=== PATIENT | female | born 1975 | race African-American/Black ===

== ENCOUNTER 2021-05-30 15:46 | Emergency (ER) | payer OTHER ==
[2021-05-30 15:53] VITALS: BP 145/78; PULSE 81; BMI 33.3
[2021-05-30 15:58] VITALS: TEMP 98.5
[2021-05-30] MEDS ORDERED: morphine SULFATE 4 MG/ML VIAL IVPUSH ONE (16:23)
[2021-05-30] MEDS ORDERED: ONDANSETRON 4 MG/2 ML VIAL IVPUSH ONE (16:23)
[2021-05-30] MEDS ORDERED: morphine SULFATE 4 MG/ML VIAL ONE (16:34)
[2021-05-30] MEDS ORDERED: ONDANSETRON 4 MG/2 ML VIAL ONE (16:35)
[2021-05-30 17:43] LABS: BASO % 1.4 % (0-2.0); HEMATOCRIT 38.2 % (32.4-45.2); HEMOGLOBIN 12.9 GM/dL (10.7-15.3); LYMPH % 47.2 % (8-40); MCHC 33.8 g/dl (32.0-36.0); MEAN CELL VOLUME 88.8 fl (80-96); MEAN PLT VOLUME 9.1 fl (7.5-11.1); MONO % 7.7 % (3.8-10.2); NEUT % 39.7 % (42.8-82.8); PLATELET COUNT 180 10^3/uL (134-434); RDW 14.3 % (11.6-15.6); WHITE BLOOD COUNT 4.7 K/mm3 (4.0-10.0)
[2021-05-30 17:50] LABS: INR 1.05 (0.83-1.09); PROTHROMBIN TIME (PATIENT) 12.9 SEC (9.7-13.0)
[2021-05-30 18:12] LABS: ALBUMIN 3.9 g/dl (3.4-5.0); BLOOD UREA NITROGEN 4.6 mg/dL (7-18); CALCIUM 8.5 mg/dL (8.5-10.1)
[2021-05-30 18:15] LABS: CREATININE 0.3 mg/dL (0.55-1.3)
[2021-05-30 18:17] LABS: BILIRUBIN,TOTAL 0.8 mg/dL (0.2-1); TOT PROT 7.4 g/dl (6.4-8.2)
[2021-05-30 20:35] LABS: PH,URINE 6.5 (5.0-8.0); URINE APPEARANCE Clear; URINE BILIRUBIN Negative (NEGATIVE); URINE COLOR Yellow; URINE GLUCOSE (UA) Negative (NEGATIVE); URINE KETONE 4+ (NEGATIVE); URINE LEUK ESTERASE Negative (NEGATIVE); URINE NITRITE Negative (NEGATIVE); URINE PROTEIN Negative (NEGATIVE)
[2021-05-30 21:02] LABS: EPI CELLS 12.7 /uL (0-25.1); HYALINE CASTS 0.88 /uL (0-3.1); URINE BACTERIA 138.8 /uL (0-1359); URINE RBC 45.1 /uL (0-23.9); URINE WBC 6.9 /uL (0-25.8)
== END 2021-05-30 21:44 | disposition home or self-care (01) ==
LOC: JER 15:46
PROC: 3E033GC Introduction of Other Therapeutic Substance into Peripheral Vein, Percutaneous Approach (ICD-10-PCS; principal; 2021-05-30)
DX: O20.9 Hemorrhage in early pregnancy, unspecified (principal); Z3A.08 8 weeks gestation of pregnancy
CPT/HCPCS: 36415; 76801-TC; 80053; 81003; 84702; 85025; 85610; 85730; 86850; 86900; 86901; 87086; 99284-25

== ENCOUNTER 2022-05-01 16:30 | Emergency (ER) | payer OTHER ==
[2022-05-01 17:03] VITALS: BP 154/98; PULSE 76; TEMP 97.3; BMI 30.3
[2022-05-01] MEDS ORDERED: SODIUM CHLORIDE 1,000 ML IV STA (18:21)
[2022-05-01] MEDS ORDERED: PANTOPRAZOLE SODIUM 40 MG VIAL IVPB ONE (18:22)
[2022-05-01] MEDS ORDERED: PANTOPRAZOLE SODIUM 40 MG VIAL ONE (18:30)
[2022-05-01] MEDS ORDERED: ONDANSETRON 4 MG/2 ML VIAL IVPUSH ONE (18:30)
[2022-05-01] MEDS ORDERED: ONDANSETRON 4 MG/2 ML VIAL ONE (18:30)
[2022-05-01] MEDS ORDERED: ASPIRIN 81 MG CHEWABLE TABLETS PO ONE (19:02)
[2022-05-01] MEDS ORDERED: HALOPERIDOL LACTATE 5 MG/ML IM ONE (19:50)
[2022-05-01] MEDS ORDERED: HALOPERIDOL LACTATE 5 MG/ML ONE (19:57)
[2022-05-01 20:15] LABS: BASO % 0.4 % (0-2.0); EOS % 0.6 % (0-4.5); HEMATOCRIT 40.3 % (32.4-45.2); HEMOGLOBIN 13.2 GM/dL (10.7-15.3); LYMPH % 27.6 % (8-40); MCH 29.5 pg (25.7-33.7); MCHC 32.6 g/dl (32.0-36.0); MEAN CELL VOLUME 90.3 fl (80-96); MEAN PLT VOLUME 9.1 fl (7.5-11.1); NEUT % 66.4 % (42.8-82.8); PLATELET COUNT 193 10^3/uL (134-434); RBC 4.46 M/mm3 (3.60-5.2); RDW 15.8 % (11.6-15.6); RETICULOCYTES 1.01 % (0.5-1.5); WHITE BLOOD COUNT 5.3 K/mm3 (4.0-10.0)
[2022-05-01 20:33] LABS: ALBUMIN 4.2 g/dl (3.4-5.0); CALCIUM 9.3 mg/dL (8.5-10.1)
[2022-05-01 20:34] LABS: BLOOD UREA NITROGEN 12.8 mg/dL (7-18)
[2022-05-01 20:36] LABS: CREATININE 0.6 mg/dL (0.55-1.3)
[2022-05-01 20:38] LABS: BILIRUBIN,TOTAL 0.5 mg/dL (0.2-1)
[2022-05-01 21:08] LABS: EPI CELLS 3 /uL (0-25.1); HYALINE CASTS 0 /uL (0-3.1); URINE APPEARANCE CLEAR; URINE BACTERIA 14 /uL (0-1359); URINE BILIRUBIN NEGATIVE (NEGATIVE); URINE COLOR YELLOW; URINE GLUCOSE (UA) NEGATIVE (NEGATIVE); URINE KETONE NEGATIVE (NEGATIVE); URINE LEUK ESTERASE NEGATIVE (NEGATIVE); URINE NITRITE NEGATIVE (NEGATIVE); URINE PROTEIN 1+ (NEGATIVE); URINE RBC 13 /uL (0-23.9); URINE UROBILINOGEN 0.2 mg/dL (0.2-1.0); URINE WBC 2 /uL (0-25.8)
== END 2022-05-02 00:09 | disposition home or self-care (01) ==
LOC: JER 16:30
PROC: 3E033GC Introduction of Other Therapeutic Substance into Peripheral Vein, Percutaneous Approach (ICD-10-PCS; principal; 2022-05-01)
PROC: 3E033GC Introduction of Other Therapeutic Substance into Peripheral Vein, Percutaneous Approach (ICD-10-PCS; 2022-05-01)
PROC: 3E033GC Introduction of Other Therapeutic Substance into Peripheral Vein, Percutaneous Approach (ICD-10-PCS; 2022-05-01)
PROC: 3E0337Z Introduction of Electrolytic and Water Balance Substance into Peripheral Vein, Percutaneous Approach (ICD-10-PCS; 2022-05-01)
PROC: 3E023NZ Introduction of Analgesics, Hypnotics, Sedatives into Muscle, Percutaneous Approach (ICD-10-PCS; 2022-05-01)
DX: R11.2 Nausea with vomiting, unspecified (principal)
CPT/HCPCS: 71046-TC-FY; 80053; 81003; 83690; 84703; 85025; 85045; 86850; 86900; 86901; 87086; 93005; 93010; 96361; 96372; 96374; 96375; 99285-25; C9803-CS; U0003; U0005